=== PATIENT | female | born 1980 | race Caucasian/White ===

== ENCOUNTER → 2024-01-11 14:02 | Outpatient (REF) | payer OTHER, SELFPAY | LOC: HWWDC 14:02 | PROVIDERS: ATTENDING PHYSICIAN Family Medicine | DX: Z12.31 Encounter for screening mammogram for malignant neoplasm of breast (principal) | CPT/HCPCS: 77063; 77067 ==

== ENCOUNTER → 2025-03-13 13:33 | Outpatient (REF) | payer OTHER, SELFPAY | LOC: HWRAD 13:33 | PROVIDERS: ATTENDING PHYSICIAN Family Medicine | DX: N93.9 Abnormal uterine and vaginal bleeding, unspecified (principal) | CPT/HCPCS: 76830; 76856 ==

== ENCOUNTER → 2025-04-10 18:47 | Outpatient (REF) | payer OTHER, SELFPAY | LOC: WDC 18:47 | PROVIDERS: ATTENDING PHYSICIAN Family Medicine | DX: Z12.31 Encounter for screening mammogram for malignant neoplasm of breast (principal) | CPT/HCPCS: 77063; 77067 ==

== ENCOUNTER 2025-05-18 06:08 | Day surgery (SDC) | payer OTHER, SELFPAY ==
[2025-05-02 14:10] VITALS: BMI 35.9
[2025-05-03 07:24] LABS: Hematocrit 36.8 % (37.0-47.0); Hemoglobin 11.6 g/dL (12.0-16.0); Mean Corp Hgb Conc. 31.5 g/dL (33.0-37.0); Mean Corpuscular Volume 77.6 fL (81.0-99.0); Nucleated Red Blood Cells % 0 %; Platelet Count 303 10^3/uL (130-400); Red Cell Dist. Width 16.5 % (11.5-14.5)
[2025-05-03 07:41] LABS: HCG, Serum Qualitative Screen Negative
--- NOTE | 2025-05-17 21:17 | HPS.HSE ---
Family Physician
-
Family Physician: William Christie
Chief Complaint
-
hysteroscopy
History of Present Illness
Patient is a 45yo who presents with complaints of heavy menses. She reports over the last year, her periods have gotten very heavy and she will soak through a pad or tampon in an hour. Her periods are every 20-25 days and will last around 10
days. The first 3-4 days are very heavy. She saw her PCP and they ordered labs and said her iron has dropped a lot. They got a pelvic US as well and suggested she see a clin nurse spec. She has not seen a clin nurse spec in many years.
Pelvic US
UT 13.4x7.0x9.0cm with a 4.3x3.4x3.7cm L body intramural fibroid
ET 2.8cm with isogenic soft tissue lesion within the fundus measuring 2.5x2.8x2.1cm that is an intracavitary fibroid vs large polyp
PMHx: anemia
Meds: zyrtec, iron, magnesium
Surghx: hernia repair, wisdom teeth
All: clindamycin- rash
Socialhx: occ etoh, denies tobacco or illicit drug use
Famhx: mom w/ breast cancer
OBHx: , FT SVDx2, SABx1
Gynhx: last Pap 2017- denies history of abnormal, LMP 04/12
Medical History
Past Medical History
Past Medical History: Reports Other
Past Surgical History: Reports Other
Social History
Tobacco: Non-smoker
Alcohol: Occasional
Drug: None
Family History
Family History: Cancer
Allergies / Home Medications
Allergies reflects when Allergies were last updated in [facility] [facility]
Home Medications with original date entered in [employer] [facility]
Allergy/Medication List:
Meds: zyrtec 10mg qD, iron, magnesium
All: clindamycin- rash
Review of Systems
-
A 12 point ROS was completed and negative except as noted: Yes
Physical Exam
Physical Exam
General: Well Developed and Well Nourished
HEENT: NormoCephalic
Respiratory: Non Labored Respirations
Cardiac: Regular Rhythm
Skin: Warm and Dry
Neuro: Awake, Alert and Oriented
Psych: Calm
Laboratory Results
-
05/03/25 06:47
Impression/Plan
-
IMPRESSION:
Patient is a 45yo who presents for evaluation of abnormal uterine bleeding, submucosal fibroid
PLAN:
- Pelvic US reviewed with patient. There is an 4.3cm intramural fibroid as well as a polyp vs intracavitary fibroid. Discussed recommendation for hysteroscopy D&C for direct visualization as well as endometrial sampling. Aware there might not be a
fibroid or polyp in the endometrial cavity, but will sample the endometrium regardless. Risks, benefits and alternatives to hysteroscopy D&C reviewed including bleeding, infection, damage to surrounding structures, uterine perforation and need for
future surgeries reviewed. Consented for a blood transfusion if needed
- Postop expectations reviewed.
- Proceed with hysteroscopy D&C with myosure
[2025-05-18] VITALS (8 sets, daily range): BP systolic 128–170; BP diastolic 87–101; BMI 35.9
[2025-05-18] MEDS: NORMOSOL-R/PLASMALYTE-A 1000 IV (09:12)
--- NOTE | 2025-05-18 17:32 | OR.RPT ---
Operative Report
Operative Report
Procedure date: 05/18/2025
Preop diagnosis:
- Abnormal uterine bleeding
Postop diagnosis
- Intracavitary fibroid
Procedure
- Hysteroscopy, dilation and curettage with MyoSure
- Partial resection of intracavitary fibroid
Surgeon: Briana Narayanan DO
Anesthesia: General, Chambers
EBL: 10cc
Complications: none
Findings
- Normal appearing external genitalia
- Cervix without lesions or masses
- Bimanual exam with normal sized anteverted uterus, no adnexal masses
- Hysteroscopic evaluation with large intracavitary fibroid coming from the left uterine wall that took up half of the uterine cavity. Right tubal ostia visualized. Left tubal ostia unable to be visualized secondary to large fibroid. One third to
one half of fibroid able to be removed. Procedure stopped secondary to fluid deficit
Pathology: endometrial curettings, fibroid
Indication:
Patient is a 45yo who presents for scheduled hysteroscopy D&C with MyoSure. She has been having abnormal uterine bleeding with heavy periods and pelvic US showed a 4.3cm intramural fibroid as well as a polyp vs intracavitary fibroid.
Discussed recommendation for hysteroscopy D&C for direct visualization as well as endometrial sampling. Risks, benefits and alternatives to hysteroscopy D&C reviewed including bleeding, infection, damage to surrounding structures, uterine
perforation and need for future surgeries reviewed. All questions answered prior to proceeding. Consents were signed.
Procedure:
Patient was taken to the operating room and placed under general anesthesia. She was placed in the dorsal lithotomy position with Antoni type stirrups. She was prepped and draped in the normal sterile fashion. Bimanual exam revealed the
aforementioned findings. A straight cath was performed for 20cc of clear urine. A Thompson retractor was placed in the anterior portion of the vagina and a Thompson retractor in the posterior aspect of the vagina revealing good visualization the cervix. The
anterior lip of the cervix was grasped with an Allis clamp. The uterus was sounded to 9cm. The cervix was sequentially dilated to accommodate the MyoSure hysteroscope. The hysteroscope was advanced under direct visualization. Hysteroscopic
evaluation revealed the aforementioned findings. A large intracavitary fibroid was present. The MyoSure reach resecting device was used to resect the fibroid. One third to one half of the fibroid was resected before reaching the fluid deficit. The
procedure was stopped once the fluid deficit was reached. The hysteroscope was removed. A size 0 curette was introduced into the cervix. The uterus was curetted in a clockwise fashion until uterine cry was felt in all quadrants. Endometrial
curettings were sent to pathology for evaluation. The Allis clamp was removed from the cervix and was hemostatic. All instruments were removed from the vagina.
The patient tolerated the procedure well. All sponge and instrument counts were correct x2. She was taken to PACU in stable condition.
== END 2025-05-18 13:16 | disposition home or self-care (01) ==
LOC: SDS 06:08
PROVIDERS: ATTENDING PHYSICIAN Student in an Organized Health Care Education/Training Program; FAMILY PHYSICIAN Family Medicine
DX: D25.9 Leiomyoma of uterus, unspecified (principal); N93.9 Abnormal uterine and vaginal bleeding, unspecified
CPT/HCPCS: 58561; 84703; 85025; 86850; 86900; 86901; 88305